=== PATIENT | female | born 1970 ===

== ENCOUNTER 2017-03-03 09:15 | Emergency (ER) | payer OTHER ==
[2017-03-03 10:11] VITALS: BP 128/76
--- NOTE | 2017-03-03 11:21 | ED ---
Cardiac Resuscitation - HPI Summary HPI Summary: 46 y/o female presents to the urgent care c/o yellowish odorous vaginal discharge x 3 days. Pt reports she had a vaginal hysterectomy ant/post repair in 02/19/2017. After surgery she had slight bleeding but it resolved. Her PAP was done 2 years ago and it was negative. Pt denies pelvic pain, fever, SOB, chest pain, N/V/D. - History of Current Complaint Chief Complaint: UCGU Stated Complaint: PERSONAL Time Seen by Provider: 03/03/17 11:05 - Allergies/Home Medications Allergies/Adverse Reactions: Allergies Allergy/AdvReac Type Severity Reaction Status Date / Time hayfever Allergy Eyes Uncoded 03/03/17 10:12 Itchy/Swollen/Red/Watery latex glove powder Allergy Rash Uncoded 03/03/17 10:12 Home Medications: Home Medications Multivitamins/Minerals TAB* [Thera M Plus TAB*] 1 tab PO DAILY 03/03/17 [ History Confirmed 03/03/17] Diagnostics - Vital Signs Vital Signs Temp Pulse Resp BP 03/03/17 09:59 98.5 F 59 18 128/76 - Laboratory Lab Statement: Any lab studies that have been ordered have been reviewed, and results considered in the medical decision making process.
--- NOTE | 2017-03-03 11:26 | UC ---
Complaint Female HPI - HPI Summary HPI Summary: 46 y/o female presents to the urgent care c/o yellowish odorous vaginal discharge x 3 days. Pt reports she had a vaginal hysterectomy ant/post repair in 02/19/2017. After surgery she had slight bleeding but it resolved. Her PAP was done 2 years ago and it was negative. Pt denies pelvic pain, fever, SOB, chest pain, N/V/D. - History Of Current Complaint Chief Complaint: UCGU Stated Complaint: PERSONAL Time Seen by Provider: 03/03/17 11:05 Hx Obtained From: Patient Hx Last Menstrual Period: 2 yrs since ablation; slight after hysterectomy 02/2017 ?: No Onset/Duration: Sudden Onset, Lasting Days, Still Present Timing: Constant, Lasting Days Severity Initially: Mild Severity Currently: Mild Pain Intensity: 0 Pain Scale Used: 0-10 Numeric Character: Not Applicable Aggravating Factor(s): Nothing Alleviating Factor(s): Nothing Associated Signs And Symptoms: Positive: Vaginal Discharge. Negative: Fever, Back Pain, Nausea, Genital Swelling - Risk Factors Ectopic Risk Factor: Negative Ovarian Torsion Risk Factor: Negative - Allergies/Home Medications Allergies/Adverse Reactions: Allergies Allergy/AdvReac Type Severity Reaction Status Date / Time hayfever Allergy Eyes Uncoded 03/03/17 10:12 Itchy/Swollen/Red/Watery latex glove powder Allergy Rash Uncoded 03/03/17 10:12 Home Medications: Home Medications Multivitamins/Minerals TAB* [Thera M Plus TAB*] 1 tab PO DAILY 03/03/17 [ History Confirmed 03/03/17] PMH/Surg Hx/FS Hx/Imm Hx Previously Healthy: Yes - Surgical History Surgical History: Yes Surgery Procedure, Year, and Place: hysterectomy 02/19/17, 02/1998; endometrial abltion 04/2015; left breast lipoma 04/1996 - Family History Known Family History: Positive: Hypertension Family History: Asthma, glaucoma - Social History Occupation: Employed Full-time Lives: With Family Alcohol Use: Occasionally Substance Use Type: None Smoking Status (MU): Never Smoked Tobacco Review of Systems Constitutional: Negative Skin: Negative Eyes: Negative ENT: Negative Respiratory: Negative Cardiovascular: Negative Gastrointestinal: Negative Genitourinary: Other - Vaginal yellowish discharge Motor: Negative Neurovascular: Negative Musculoskeletal: Negative Neurological: Negative Psychological: Negative All Other Systems Reviewed And Are Negative: Yes Physical Exam Triage Information Reviewed: Yes Appearance: Well-Appearing, No Pain Distress, Well-Nourished, Thin Vital Signs: Initial Vital Signs Temp 98.5 F 03/03/17 09:59 Pulse 59 03/03/17 09:59 Resp 18 03/03/17 09:59 BP 128/76 03/03/17 09:59 Vital Signs Reviewed: Yes Eye Exam: Normal Eyes: Positive: Conjunctiva Clear - PERRLA, EOMI ENT Exam: Normal ENT: Positive: Normal ENT inspection, Hearing grossly normal, Pharynx normal, TMs normal Neck exam: Normal Neck: Positive: Supple, Nontender, No Lymphadenopathy Respiratory Exam: Normal Respiratory: Positive: Chest non-tender, Lungs clear, Normal breath sounds Cardiovascular Exam: Normal Cardiovascular: Positive: RRR, No Murmur, Pulses Normal Abdominal Exam: Normal Abdomen Description: Positive: Nontender, No Organomegaly, Soft, Other: - Pelvic : I was assisted by Nurse Ramonita. External genitalia within normal limits. There is no lesions there is no masses noted. Speculum exam: The vaginal brar are within normal limits w/ yellowish vaginal discharge with fishy odor, The sutures around cervix is noted healling well from recent hysterectomy, No erythema or signs of infection noted. . There is no CMT's, and no adnexal masses. Sample sent to Lab for BV/tiffany affirm test.. Negative: CVA Tenderness (R), CVA Tenderness (L) Bowel Sounds: Positive: Present Musculoskeletal Exam: Normal Musculoskeletal: Positive: Strength Intact, ROM Intact, No Edema Neurological Exam: Normal Psychological Exam: Normal Skin Exam: Normal Complaint Female Dx - Course Course Of Treatment: 46 y/o female c/o yellowish vaginal discharge x 3days, s/p hysterectomy in 02/19/2017. Hx obtained. PE abnormal findings:Pelvic: I was assisted by Nurse Shipman. External genitalia within normal limits. There is no lesions there is no masses noted. Speculum exam: The vaginal brar are within normal limits w/ yellowish vaginal discharge with fishy odor, The sutures around cervix are healling well from recent hysterectomy surgery, No erythema or signs of infection noted. . There is no CMT's, and no adnexal masses. Sample sent to Lab for BV/tiffany affirm test. Pt Rx Metronidazole PO x 7 days.Advised to avoid drinking alcohol. educated on BV. Pt understood and agreed - Differential Dx/Diagnosis Differential Diagnosis/HQI/PQRI: Cervicitis, Pelvic Inflammatory Disease, Sexually Transmitted Disease, Urinary Tract Infection Provider Diagnoses: Bacterial Vaginosis Discharge - Discharge Plan Condition: Stable Disposition: HOME Prescriptions: metroNIDAZOLE TAB* [Flagyl 250 mg TAB*] 250 mg PO BID #28 tab Patient Education Materials: Bacterial Vaginosis (ED) Referrals: Kyara Bravo MD [Primary Care Provider] - Additional Instructions: Please take medications as instructed, full course. Avoid drinking alcohol while taking medication. If symptoms persist despite treatment, please return to the Urgent care or f/u with you [employer].
== END 2017-03-03 11:51 | disposition home or self-care (01) ==
LOC: UCCORT 09:15
DX: N76.0 Acute vaginitis (principal)
CPT/HCPCS: 87480; 87510; 99212; G0463